=== PATIENT | male | born 1965 | race Caucasian/White ===

== ENCOUNTER 2019-11-02 16:45 | Emergency (ER) | payer OTHER ==
[~2019-11-02] VITALS: Ht 182.9 cm; Wt 112.5 kg
[~2019-11-02 16:45] MED LIST: FLEXERIL PO; GLUCOPHAGE XR500 MG; VICODIN 5-5001 EACH PO
[2019-11-02] MEDS ORDERED: IBUPROFEN 800800 M1 PO (18:29)
[2019-11-02] MEDS ORDERED: NORCO 5-325 TA1 EAC2 PO (18:29)
[2019-11-02 19:22] VITALS: BP 132/87
== END 2019-11-02 19:15 | disposition home or self-care (01) ==
LOC: M.ERS 16:45
DX: S62.336A Displaced fracture of neck of fifth metacarpal bone, right hand, initial encounter for closed fracture (principal); E11.9 Type 2 diabetes mellitus without complications; Z90.49 Acquired absence of other specified parts of digestive tract; Z88.1 Allergy status to other antibiotic agents; X50.9XXA Other and unspecified overexertion or strenuous movements or postures, initial encounter; Y93.89 Activity, other specified; Y92.89 Other specified places as the place of occurrence of the external cause; Y99.8 Other external cause status

== ENCOUNTER → 2019-11-12 | Outpatient (CLI) | payer OTHER ==
[~2019-11-12] MED LIST changes: +IBUPROFEN 800800 M1 PO; +NORCO 5-325 TA1 EAC2 PO
== END ==
LOC: M.LAB 15:49
PROVIDERS: ATTEND Orthopaedic Surgery
DX: Z01.818 Encounter for other preprocedural examination (principal); S62.336A Displaced fracture of neck of fifth metacarpal bone, right hand, initial encounter for closed fracture; Z11.59 Encounter for screening for other viral diseases; X58.XXXA Exposure to other specified factors, initial encounter; Y93.89 Activity, other specified; Y92.89 Other specified places as the place of occurrence of the external cause; Y99.8 Other external cause status

== ENCOUNTER 2020-09-19 14:20 | Emergency (ER) | payer OTHER ==
[~2020-09-19] VITALS: Ht 182.9 cm; Wt 106.6 kg
[2020-09-19] MEDS ORDERED: IBUPROFEN 800800 M1 PO (15:54)
[2020-09-19] MEDS ORDERED: FLEXERIL PO (15:54)
[2020-09-19 16:23] VITALS: BP 171/97
== END 2020-09-19 16:24 | disposition home or self-care (01) ==
LOC: M.ERS 14:20
DX: S46.001A Unspecified injury of muscle(s) and tendon(s) of the rotator cuff of right shoulder, initial encounter (principal); E11.9 Type 2 diabetes mellitus without complications; Z88.8 Allergy status to other drugs, medicaments and biological substances; Z90.49 Acquired absence of other specified parts of digestive tract; V86.99XA Unspecified occupant of other special all-terrain or other off-road motor vehicle injured in nontraffic accident, initial encounter; Y93.89 Activity, other specified; Y92.89 Other specified places as the place of occurrence of the external cause; Y99.8 Other external cause status